=== PATIENT | female | born 1985 | race Hispanic/Latino ===

== ENCOUNTER 2016-10-31 17:59 | Emergency (ER) | payer SELFPAY ==
[2016-10-31] MEDS ORDERED: Clindamycin 150 MG CAP ONE (18:31)
== END 2016-10-31 18:40 | disposition home or self-care (01) ==
LOC: NAV ERS 17:59
DX: K02.9 Dental caries, unspecified (principal); F17.210 Nicotine dependence, cigarettes, uncomplicated
CPT/HCPCS: 99282

== ENCOUNTER 2017-06-15 08:52 | Emergency (ER) | payer SELFPAY ==
[2017-06-15] MEDS ORDERED: Clindamycin 150 MG CAP ONE (09:15)
== END 2017-06-15 09:29 | disposition home or self-care (01) ==
LOC: NAV ERS 08:52
DX: K02.9 Dental caries, unspecified (principal); K04.7 Periapical abscess without sinus; F17.210 Nicotine dependence, cigarettes, uncomplicated; F41.0 Panic disorder [episodic paroxysmal anxiety]
CPT/HCPCS: 99283

== ENCOUNTER 2017-07-06 10:47 | Emergency (ER) | payer SELFPAY ==
[2017-07-06 11:56] LABS: Bilirubin Negative (Negative); Blood, Urine Moderate (Negative); Clarity Clear (Clear); Glucose, Urine (Dipstick) Negative (Negative); Leukocyte Large (Negative); Nitrite Positive (Negative); Protein, Urine (Dipstick) 100 mg/dL (Neg-Trace); pH, Urine 5.5 (5.0-9.0)
[2017-07-06 12:19] LABS: Bacteria/HPF 2+ HPF (None Seen)
== END 2017-07-06 11:49 | disposition home or self-care (01) ==
LOC: NAV ERS 10:47
CPT/HCPCS: 81003; 81015; 87077; 87086; 87186; 99284

== ENCOUNTER 2017-10-03 16:15 | Emergency (ER) | payer OTHER, SELFPAY ==
[2017-10-03] MEDS ORDERED: Ondansetron ODT 4 MG TAB ONE ×2 (17:16→17:19)
[2017-10-03] MEDS ORDERED: Acetaminophen 500 MG TAB ONE (17:39)
[2017-10-03 17:43] LABS: Bilirubin Negative (Negative); Blood, Urine Small (Negative); Glucose, Urine (Dipstick) Negative (Negative); Leukocyte Moderate (Negative); Nitrite Positive (Negative); Protein, Urine (Dipstick) 100 mg/dL (Neg-Trace); pH, Urine 5.5 (5.0-9.0)
[2017-10-03 17:50] LABS: Clarity Cloudy (Clear); Pregnancy Test - Urine (BHCG) Negative (Negative); Pregu Control Background? CLEAR/WHITE (CLR/WHITE); Pregu Control Bar Appear? YES (CONTROL BAR)
[2017-10-03 17:57] LABS: Bacteria/HPF 3+ HPF (None Seen); RBC/HPF 0-3 HPF (0-3); Squamous Epithelial 0-3 HPF (0-3)
== END 2017-10-03 18:16 | disposition home or self-care (01) ==
LOC: NAV ERS 16:15
DX: N39.0 Urinary tract infection, site not specified (principal); F17.210 Nicotine dependence, cigarettes, uncomplicated
CPT/HCPCS: 81003; 81015; 81025; 87804; 99283; Q0162

== ENCOUNTER 2018-09-27 11:19 | Emergency (ER) | payer OTHER, SELFPAY | END 2018-09-27 12:02 | disposition home or self-care (01) | LOC: NAV ERS 11:19 | DX: J06.9 Acute upper respiratory infection, unspecified (principal); F17.210 Nicotine dependence, cigarettes, uncomplicated | CPT/HCPCS: 99283 ==

== ENCOUNTER 2019-03-14 13:46 | Emergency (ER) | payer OTHER ==
[2019-03-14] MEDS ORDERED: Fluorescein Opthalmic Strip ONE (13:58)
[2019-03-14] MEDS ORDERED: Gentamicin Ophth Soln 0.3% 5 ml Bottle ONE (14:10)
== END 2019-03-14 14:15 | disposition home or self-care (01) ==
LOC: NAV ERS 13:46
DX: S05.01XA Injury of conjunctiva and corneal abrasion without foreign body, right eye, initial encounter (principal); H10.9 Unspecified conjunctivitis; F17.210 Nicotine dependence, cigarettes, uncomplicated; W22.8XXA Striking against or struck by other objects, initial encounter
CPT/HCPCS: 99283

== ENCOUNTER 2021-02-05 08:00 | Emergency (ER) | payer MEDICAID, SELFPAY ==
[2021-02-05] MEDS ORDERED: Tetracaine HCl 0.5% Ophth Soln 2 ML Bottle ONE (08:16)
[2021-02-05] MEDS ORDERED: Fluorescein Opthalmic Strip ONE (08:16)
== END 2021-02-05 08:40 | disposition home or self-care (01) ==
LOC: NAV ERS 08:00
DX: H10.32 Unspecified acute conjunctivitis, left eye (principal); F17.210 Nicotine dependence, cigarettes, uncomplicated
CPT/HCPCS: 99283

== ENCOUNTER 2021-03-01 14:27 | Emergency (ER) | payer MEDICAID, SELFPAY | END 2021-03-01 15:10 | disposition home or self-care (01) | LOC: NAV ERS 14:27 | DX: B34.9 Viral infection, unspecified (principal); Z20.822 Contact with and (suspected) exposure to COVID-19; F17.210 Nicotine dependence, cigarettes, uncomplicated | CPT/HCPCS: 99283 ==

== ENCOUNTER 2022-02-27 16:23 | Emergency (ER) | payer SELFPAY ==
[2022-02-27] MEDS ORDERED: Ondansetron ODT 4 MG TAB ONE (16:48)
[2022-02-27] MEDS ORDERED: Acetaminophen/Codeine 30-300mg Tablet ONE (16:48)
[2022-02-27 18:02] LABS: BHCG - Serum Negative (NEGATIVE); Pregs Control Bar Appear? YES (CONTROL BAR)
[2022-02-27] MEDS ORDERED: Clindamycin 150 MG CAP ONE (18:58)
== END 2022-02-27 19:17 ==
LOC: NAV ERS 16:23
DX: S20.211A Contusion of right front wall of thorax, initial encounter (principal); S00.33XA Contusion of nose, initial encounter; S00.12XA Contusion of left eyelid and periocular area, initial encounter; S00.03XA Contusion of scalp, initial encounter; K04.7 Periapical abscess without sinus; F17.210 Nicotine dependence, cigarettes, uncomplicated; X58.XXXA Exposure to other specified factors, initial encounter
CPT/HCPCS: 36415; 70450; 70486; 84703; 94799; Q0162

== ENCOUNTER 2024-01-07 15:26 | Emergency (ER) | payer MEDICAID ==
[2024-01-07 17:10] LABS: #Eosinphils 0.2 thou/uL (0.0-0.7); #Lymphocytes 1.5 thou/uL (1.20-3.40); #Monocytes 0.6 thou/uL (0.11-0.59); #Neutrophils 5.9 thou/uL (1.40-6.50); %Basophils 0.3 % (0.0-1.0); %Lymphocytes 18.2 % (21.0-51.0); %Monocytes 6.7 % (0.0-10.0); %Neutrophils 71.8 % (42.0-75.0); Hematocrit 40.6 % (36.0-47.0); Hemoglobin 12.5 g/dL (12.0-16.0); Mean Corpuscular HGB CONC 30.8 g/dL (32.0-36.0); Mean Corpuscular Hemoglobin 27.4 pg (27.0-31.0); Mean Corpuscular Volume 89.1 fl (78.0-98.0); Mean Platelet Volume 8.4 fL (7.4-10.4); Platelet Count 257 10x3/uL (130-400); RBC Distribution Width 13.4 % (11.5-14.5); Red Blood Cell (RBC) Count 4.55 mill/uL (4.20-5.40); White Blood Cell (WBC) Count 8.3 10x3/uL (4.8-10.8)
[2024-01-07 17:13] LABS: Pregnancy Test - Urine (BHCG) Negative (Negative); Pregu Control Background? CLEAR/WHITE (CLR/WHITE); Pregu Control Bar Appear? YES (CONTROL BAR)
[2024-01-07 17:19] LABS: Prothrombin Time 12.8 sec (12.0-14.7)
[2024-01-07 17:20] LABS: PTT 26.2 sec (22.9-36.1)
[2024-01-07 17:27] LABS: ALT (SGPT) 17 U/L (8-55); AST (SGOT) 19 U/L (5-34); Alkaline Phosphatase 46 U/L (40-110); Anion Gap 12 mmol/L (10-20); BUN (Urea Nitrogen) 8 mg/dL (7.0-18.7); Bilirubin, Total 0.5 mg/dL (0.2-1.2); Calc. Creatinine Clearance 0 mL/min (70-130); Calcium 9.2 mg/dL (7.8-10.44); Carbon Dioxide 24 mmol/L (22-29); Chloride 108 mmol/L (98-107); Estimated GFR 111; Globulin 3.2 g/dL (2.4-3.5); Glucose 110 mg/dL (70-105); Potassium 3.8 mmol/L (3.5-5.1); Protein, Total 7.2 g/dL (6.0-8.3); Sodium 140 mmol/L (136-145)
[2024-01-07] MEDS ORDERED: HYDROcodone/Acetaminophen 10/325 mg Tablet ONE (17:27)
[2024-01-07] MEDS ORDERED: Ketorolac Tromethamine 30 MG (1 mL) VIAL ONE (18:20)
== END 2024-01-07 18:30 | disposition home or self-care (01) ==
LOC: NAV ERS 15:26
DX: N93.9 Abnormal uterine and vaginal bleeding, unspecified (principal); R10.2 Pelvic and perineal pain; F17.210 Nicotine dependence, cigarettes, uncomplicated
CPT/HCPCS: 80053; 81025; 85025; 85610; 85730; 96374; J1885